=== PATIENT | male | born 1985 | race Caucasian/White ===

== ENCOUNTER 2018-12-20 14:19 | Emergency (ER) | payer SELFPAY ==
[~2018-12-20] VITALS: Ht 162.6 cm; Wt 74.0 kg
[2018-12-20] MEDS ORDERED: KETOROLAC 60MG/2ML VIAL IM STA (14:52)
[2018-12-20] MEDS ORDERED: BACITRACIN ZINC OINT UDPKT TOP ONE (15:00)
[2018-12-20] MEDS ORDERED: LIDOCAINE HCL/PF 1% 10 MG/ML 5ML VIAL IJ ONE (15:00)
[2018-12-20] MEDS ORDERED: BACITRACIN 15GM TUBE TOP ONE (15:30)
[2018-12-20 17:41] VITALS: BP 150/72
== END 2018-12-20 17:41 | disposition home or self-care (01) ==
LOC: ER 14:19
DX: S61.012A Laceration without foreign body of left thumb without damage to nail, initial encounter (principal); W26.1XXA Contact with sword or dagger, initial encounter; Y93.89 Activity, other specified; Y92.89 Other specified places as the place of occurrence of the external cause; Y99.8 Other external cause status
CPT/HCPCS: 12001; 73140; 96372; 99283; J1885; J3490